=== PATIENT | male | born 1990 | race American Indian/Alaskan Native ===

== ENCOUNTER 2020-09-19 10:07 | Day surgery (SDC) | payer BC ==
--- NOTE | 2020-09-17 10:31 | Anesthesia Consultation ---
Anesthesia Consult and Med Hx Date of service: 09/19/20 - Airway Anesthetic Teeth Evaluation: Good ROM Head & Neck: Adequate Mental/Hyoid Distance: Adequate Mallampati Class: Class III Intubation Access Assessment: Possibly Difficult - Pulmonary Exam CTA: Yes - Cardiac Exam Cardiac Exam: RRR - Pre-Operative Health Status ASA Pre-Surgery Classification: ASA3 Proposed Anesthetic Plan: General - Pulmonary Hx Smoking: No Hx Respiratory Symptoms: No Hx Sleep Apnea: Yes (compliant with CPAP) - Cardiovascular System Hx Hypertension: Yes Hx Heart Attack/AMI: No Hx Percutaneous Transluminal Coronary Angioplasty (PTCA): No Hx Cardia Arrhythmia: No - Central Nervous System CVA: No - Gastrointestinal Hx Gastroesophageal Reflux Disease: No - Endocrine Hx Renal Disease: No Hx Liver Disease: No Hx Insulin Dependent Diabetes: No Hx Non-Insulin Dependent Diabetes: No Hx Thyroid Disease: No - Hematic Hx Anemia: Yes - Other Systems Hx Obesity: Yes (BMI 63) - Additional Comments Anesthesia Medical History Comments: No prior GA or FHx anesthetic complications. BP elevated in preop but was taken shortly after coronavirus test sample collected. Patient reports hx HTN 2 yrs ago which resolved without intervention. States he check BP occasionally and is usually normal. Does not have PCP at this time. Patient encouraged to establish care with PCP in the near future for management of possible HTN.
[~2020-09-19 10:07] MED LIST: LACTATED RINGERS 1,000 ML IV SCH; MIDAZOLAM 2 MG/2 ML INJ IV NR; NEOMY 3.5 MG/BACIT 400 UNITS/POLY B 5000 UNITS/GM OINT PACKET TP ONE; SODIUM CHLORIDE 0.9% IRR 1,500 ML BOTTLE IR ONE
--- NOTE | 2020-09-19 11:08 | Anesthesia Day of Surgery ---
Anesthesia Day of Surgery - Day of Surgery Patient Examined: Yes Patient H&P Reviewed: Yes Patient is NPO: Yes
[2020-09-19] MEDS ORDERED: SUCCINYLCHOLINE CHLORIDE 200 MG/10 ML INJ MDV ONE (11:32)
[2020-09-19] MEDS ORDERED: fentaNYL 100 MCG/2 ML INJ ONE (11:32)
[2020-09-19] MEDS ORDERED: LIDOCAINE MPF (2%) 20 MG/1 ML VIAL 5 ML ONE (11:32)
[2020-09-19] MEDS ORDERED: propofoL 200 MG/20 ML VIAL IV ONE (11:33)
[2020-09-19] MEDS ORDERED: SODIUM CHLORIDE 0.9% IRR 1,500 ML BOTTLE IR ONE (12:53)
[2020-09-19] MEDS ORDERED: NEOMY 3.5 MG/BACIT 400 UNITS/POLY B 5000 UNITS/GM OINT PACKET TP ONE ×2 (12:54→13:17)
--- NOTE | 2020-09-19 13:30 | Post Operative Note ---
Date of procedure: 09/19/20 Pre-op diagnosis: severe phimosis Post-op diagnosis: same Findings: as above Procedure: circ Anesthesia: GETA Surgeon: STAN HAMMOND Estimated blood loss: minimal Pathology: list (skin) Specimen disposition: to lab Condition: stable Disposition: PACU
--- NOTE | 2020-09-19 13:32 | Discharge Summary ---
Short Stay Discharge Plan Activity: other (no straining ) Weight Bearing Status: Full Weight Bearing Diet: low fat, low cholesterol, low salt Wound: open to air, other (ice in rr and x 24 hrs ) Special Instructions: other (remove dressing tonigh use ice ) Follow up with: PRIMARY CARE, [Primary Care Provider] - 7 Days STAN HAMMOND MD [Staff Physician] - 14 Days
[2020-09-19] MEDS: fentaNYL 100 MCG/2 ML INJ IV PRN ×2 (13:41→13:51)
[2020-09-19] MEDS ORDERED: HYDROcodone/ACETAMINOPHEN 5-325 MG TAB PO PRN (13:59)
--- NOTE | 2020-09-19 14:32 | Operative Report ---
PREOPERATIVE DIAGNOSES: Severe phimosis, inability to see the glans. POSTOPERATIVE DIAGNOSES: Severe phimosis, inability to see the glans. PROCEDURE: Circumcision, dorsal slit. SURGEON: Dr. Hoffman. ANESTHESIA: General. FINDINGS: This is a gentleman with severe phimosis. Could not retract the skin at all and now presents for treatment. DESCRIPTION OF PROCEDURE: The patient was brought to the operating room and placed on the operating room table. Following induction of anesthesia, placed in the supine position, prepped and draped in the usual sterile fashion. The patient is severely obese, sleep apnea. A dorsal slit was carried out. We could not see the glans. We had to carry that all the way dorsally. Small ventral slit was done and a large amount of skin was excised. Bleeders were tied and the frenulum was split. It was adherent to the skin. This had to be reconstructed with 4-0. Because of his obesity, we placed a stay suture in the glans. Hemostasis was assured. Sutures were placed at 12, 3, 6, and 9 o'clock position. The frenulum was reconstructed. The patient tolerated the procedure well. Each quadrant was closed with 3-0 chromic. The patient tolerated the procedure well. No significant complications. Hemostasis was excellent and brought to recovery in stable condition. Loose dressing to be removed later. JOB# [id number] RENATO/AYO
[2020-09-19 15:02] VITALS: BP 135/82
--- NOTE | 2020-09-19 15:23 | Post Anesthesia Evaluation ---
- Post Anesthesia Evaluation Patient Participated: Yes Airway Patent: Yes Stable Respiratory Function: Yes Nausea/Vomiting: No Temp > 96.8F: Yes Pain Manageable: Yes Adequeate Hydration: Yes Anesthesia Complications: No
== END 2020-09-19 15:25 | disposition home or self-care (01) ==
LOC: OR 10:07
PROVIDERS: ATTEND Urology
DX: N47.1 Phimosis (principal); Z20.828 Contact with and (suspected) exposure to other viral communicable diseases; I10 Essential (primary) hypertension; G47.30 Sleep apnea, unspecified; E66.9 Obesity, unspecified; D64.9 Anemia, unspecified; Z98.890 Other specified postprocedural states; Z68.44 Body mass index [BMI] 60.0-69.9, adult
CPT/HCPCS: 54161; 88304; A6250; J0330; J0690; J2250; J2704; J3010; J7120; U0003